=== PATIENT | female | born 1985 | race Caucasian/White ===

== ENCOUNTER → 2016-03-15 | Outpatient (CLI) | payer OTHER ==
[~2016-03-15] VITALS: Ht 160 cm; Wt 89.1 kg
[~2016-03-15] MED LIST: AMOXICILLIN500 MG PO; COLACE100 MG PO; COLACE50 MG PO; ENDOCET 5-3251 EACH PO; IBUPROFEN800 MG PO; IRON325 MG PO; PRENATAL TABLE1 EAC3 PO; PREVACID30 MG PO; ZYRTEC10 M3 PO
[2016-03-15 17:38] VITALS: BP 111/63
== END | disposition home or self-care (01) ==
LOC: IVINF 17:00
DX: O36.0920 Maternal care for other rhesus isoimmunization, second trimester, not applicable or unspecified (principal); Z3A.28 28 weeks gestation of pregnancy; Z67.41 Type O blood, Rh negative
CPT/HCPCS: 96372; J2790

== ENCOUNTER 2016-06-11 17:46 | Inpatient (IN) | payer OTHER ==
[2016-03-15 17:38] VITALS: BP 111/63
[~2016-06-11] VITALS: Ht 160 cm; Wt 90.5 kg
[2016-06-11 18:02] VITALS: BP 141/86
[2016-06-11 18:49] VITALS: BP 133/86
[2016-06-11 19:30] LABS: EOSINOPHIL (%) 0.6 % (0-5); EOSINOPHIL COUNT 0.1 K/uL (0-0.3); HEMATOCRIT 27.6 % (36.0-46.0); IMMATURE GRANULOCYTE (%) 0.5 % (0.0-0.7); IMMATURE GRANULOCYTE COUNT 0.1 K/uL; INSTRUMENT ABS NEUTROPHIL CT 8.5 K/uL; LYMPHOCYTE COUNT 2.9 K/uL (1.0-2.8); MCH 25.3 PG (29.0-34.0); MCHC 32.2 G/DL (30.0-36.0); MCV 78.4 FL (83-99); MONOCYTE (%) 5.6 % (3-12); MONOCYTE COUNT 0.7 K/uL (0-0.8); NEUTROPHIL (%) 69.6 % (45-76); NEUTROPHIL COUNT 8.5 K/uL (1.8-6.4); PLATELET COUNT 270 K/uL (156-360); RBC DIS.WIDTH-CV 15.6 % (11.8-14.6); RED BLOOD COUNT 3.52 M/uL (3.80-5.20); WHITE BLOOD COUNT 12.2 K/uL (4.1-10.2)
[2016-06-11 20:13] VITALS: BP 126/81
[2016-06-11 21:21] VITALS: BP 152/80
[2016-06-11 22:16] VITALS: BP 146/89
[2016-06-11 23:37] VITALS: BP 122/68
[2016-06-12] VITALS (18 sets, daily range): BP systolic 104–145; BP diastolic 55–89
[2016-06-13 06:25] LABS: EOSINOPHIL COUNT 0.1 K/uL (0-0.3); HEMATOCRIT 20.5 % (36.0-46.0); IMMATURE GRANULOCYTE (%) 0.6 % (0.0-0.7); IMMATURE GRANULOCYTE COUNT 0.1 K/uL; INSTRUMENT ABS NEUTROPHIL CT 5.6 K/uL; MCH 25.4 PG (29.0-34.0); MCHC 31.2 G/DL (30.0-36.0); MCV 81.3 FL (83-99); MEAN PLAT.VOLUME 11.4 uM^3 (9.5-12.4); MONOCYTE COUNT 0.6 K/uL (0-0.8); NEUTROPHIL (%) 53.6 % (45-76); NEUTROPHIL COUNT 5.6 K/uL (1.8-6.4); PLATELET COUNT 217 K/uL (156-360); RBC DIS.WIDTH-SD 47.2 % (39-53); WHITE BLOOD COUNT 10.4 K/uL (4.1-10.2)
[2016-06-13 06:28] LABS: RED BLOOD COUNT 2.52 M/uL (3.80-5.20)
[2016-06-13 07:25] VITALS: BP 130/79
[2016-06-13 07:26] VITALS: BP 132/78
[2016-06-13] MEDS ORDERED: MOTRIN800 MG PO (08:35)
[2016-06-13] MEDS ORDERED: PRENATAL GUMMI1 EACH PO (12:36)
[2016-06-13] MEDS ORDERED: IRON325 MG PO (12:36)
[2016-06-13] MEDS ORDERED: COLACE100 MG PO (12:36)
[2016-06-13 14:49] VITALS: BP 121/62
[2016-06-13 22:12] VITALS: BP 137/86
[2016-06-14 07:39] VITALS: BP 116/79
[2016-06-14] MEDS ORDERED: ANALPRAM HC 2.5%4 GM PR (10:14)
== END 2016-06-14 14:50 | disposition home or self-care (01) | DRG 775 ==
LOC: LDRP-OP 17:46 → 2WEST 17:47
PROVIDERS: Midwife
DX: O48.0 Post-term pregnancy (principal); O36.0930 Maternal care for other rhesus isoimmunization, third trimester, not applicable or unspecified; O87.2 Hemorrhoids in the puerperium; E66.9 Obesity, unspecified; O99.214 Obesity complicating childbirth; O70.0 First degree perineal laceration during delivery; Z3A.41 41 weeks gestation of pregnancy
CPT/HCPCS: 83030; 85025; 86850; 86900; 86901; C1755; G0378; J0595; J2790; J3010; J7120

== ENCOUNTER 2016-07-24 13:19 | Day surgery (SDC) | payer OTHER ==
[~2016-07-24] VITALS: Ht 160 cm; Wt 83.0 kg
[~2016-07-24 13:19] MED LIST changes: +AMOXICILLIN875 MG PO; +ANALPRAM HC 2.5%4 GM PR; +MOTRIN800 MG PO; +PRENATAL GUMMI1 EACH PO
[2016-07-24 14:11] VITALS: BP 122/86
[2016-07-24 14:32] LABS: HEMATOCRIT 30.1 % (36.0-46.0); MCH 24.8 PG (29.0-34.0); MCHC 31.2 G/DL (30.0-36.0); MCV 79.4 FL (83-99); MEAN PLAT.VOLUME 11.4 uM^3 (9.5-12.4); PLATELET COUNT 338 K/uL (156-360); RBC DIS.WIDTH-CV 16.4 % (11.8-14.6); RBC DIS.WIDTH-SD 46.8 % (39-53); RED BLOOD COUNT 3.79 M/uL (3.80-5.20); WHITE BLOOD COUNT 8.8 K/uL (4.1-10.2)
[2016-07-24] MEDS ORDERED: HYDROCODON-ACE1 EAC7 PO (18:50)
[2016-07-24] MEDS ORDERED: IBUPROFEN800 MG PO (18:50)
[2016-07-24 19:25] VITALS: BP 139/92
[2016-07-24 20:15] VITALS: BP 125/84
[2016-07-24 21:04] VITALS: BP 140/83
== END 2016-07-24 21:04 | disposition home or self-care (01) ==
LOC: SDC 13:19
PROVIDERS: Obstetrics & Gynecology
PROC: 0U7C7ZZ Dilation of Cervix, Via Natural or Artificial Opening (ICD-10-PCS; principal; 2016-07-24)
DX: O72.2 Delayed and secondary postpartum hemorrhage (principal); D64.9 Anemia, unspecified
CPT/HCPCS: 85027; 86870; 86900; 86901; 86905; 86920; 88305; J1100; J1170; J2210; J2250; J2405; J3010